=== PATIENT | male | born 1975 | race Hispanic/Latino ===

== ENCOUNTER 2021-11-18 13:45 | Emergency (ER) | payer SELFPAY ==
[~2021-11-18] VITALS: Ht 165.1 cm; Wt 78.0 kg
[2021-11-18 15:43] LABS: HEMATOCRIT 42.3 % (39.0-50.0); HEMOGLOBIN 14.1 g/dl (14.0-18.0); IMMATURE GRANULOCYTES 0.1 % (0.0-5.0); MEAN CELL VOLUME 90.6 fL CALC (80.0-100.0); MEAN CORPUSCULAR HGB 30.2 pG CALC (26.0-32.0); MEAN CORPUSCULAR HGB CONC 33.3 g/dL CAL (32.0-36.0); NEUT# 5.75 thou/uL (1.82-7.42); RED BLOOD COUNT 4.67 mill/uL (4.70-6.10); RED CELL DISTRI WIDTH 10.8 % (11.5-15.5)
[2021-11-18 16:01] LABS: ALBUMIN 4.4 g/dL (3.2-5.0); BILIRUBIN, TOTAL 0.4 mg/dL (0.0-1.4); BUN 17 mg/dL (9-20); BUN/CREATININE RATIO 28 (12-20 (CALC)); CARBON DIOXIDE 26 mmol/l (22-30); CHLORIDE 95 mmol/l (95-108); CREATININE 0.6 mg/dL (0.7-1.3); GFR > 60 ML/MIN (>=60 (CALC)); GFR FOR AFR.AMER. > 60 ML/MIN (>=60 (CALC)); SGOT/AST 22 u/l (17-59); TOTAL PROTEIN 7.3 g/dL (6.3-8.2)
[2021-11-18 16:12] LABS: ALKALINE PHOSPHATASE 130 u/l (38-126); ANION GAP 17 (6-22 (CALC)); SODIUM 133 mmol/l (137-146)
[2021-11-19 03:40] VITALS: BP 131/86
== END 2021-11-19 03:40 | disposition home or self-care (01) | DRG 541 ==
LOC: ED 13:45
PROVIDERS: Family Medicine
DX: M86.8X4 Other osteomyelitis, hand (principal)

== ENCOUNTER 2022-09-11 10:46 | Emergency (ER) | payer SELFPAY ==
[2022-09-11] VITALS (8 sets, daily range): BP systolic 111–152; BP diastolic 74–109
[~2022-09-11] VITALS: Ht 180.3 cm; Wt 77.3 kg
[2022-09-11] MEDS ORDERED: MUPIROCIN2 % EX (12:38)
[2022-09-11] MEDS ORDERED: MEDDOSEPAK PO (12:38)
== END 2022-09-11 12:58 | disposition home or self-care (01) | DRG 607 ==
LOC: ED 10:46
DX: L25.9 Unspecified contact dermatitis, unspecified cause (principal)